=== PATIENT | female | born 1940 | race Caucasian/White ===

== ENCOUNTER 2016-10-11 07:25 | Inpatient (IN) | payer MEDICARE, BC ==
[~2016-10-11] VITALS: Ht 154.9 cm; Wt 118.3 kg
--- NOTE | ~2016-10-11 | CON ---
PATIENT'S NAME: CHARLIE WARD [facility] AGE: 76 Y [address] ROOM: [id number] [place], [place] [address] LOCATION: GPCU ADMIT DATE: 10/11/2016 Consultation DISCHARGE DATE: 10/18/2016 FAMILY PHYSICIAN: Angie Alva PA-C ATTENDING PHYSICIAN: Jared Barajas DATE OF CONSULTATION: 10/11/2016 REFERRING PHYSICIAN: Sunny Wright MD INDICATION: Preop clearance. HISTORY OF PRESENT ILLNESS: This 76-year-old female, transferred from [place] for a fall with right hip fracture. She has a history of diabetes, colon cancer status post resection 2- 3 years ago without need for chemo or radiation, heart disease, and CKD. She was in a prison and uses oxygen at night. She apparently received fentanyl and Dilaudid prior to transfer, and upon arriving to the ER, she was hypoxic, requiring 12 L non-rebreather. ABG at that time, showed a pH of 7.16, pCO2 97, pO2 71, bicarb 34.6, base excess 3.1. Chest x-ray performed in [place] showed atelectasis versus pneumonia at the bases. Her niece reports no history of chronic cough, shortness of breath, or wheezing, but overall she is not very ambulatory or active. There is no history of asthma, COPD, PE, or DVT. She does not use an inhaler. She has a history of smoking one pack per day for 20-30 years and quit 30 years ago. She is morbidly obese and currently on BiPAP 18/10 with FiO2 of 60% and sats 98%. She is very drowsy and will slightly open eyes to voice. Information was obtained from the niece, who is the POA, and the chart. PAST MEDICAL HISTORY: Includes type 2 diabetes, depression, history of gastric ulcer, peripheral neuropathy, hypertension, hypothyroidism, history of colon cancer status post resection without need for chemo or radiation. FAMILY HISTORY: The patient's father from an [place]. Her mother from heart disease and diabetes. She denies any history of cancer. SOCIAL HISTORY: The patient currently resides in a prison. She is a former smoker, one pack per day for 20-30 years and quit 30 years ago. There is no alcohol or illicit drug use. ALLERGIES: SEE MAR. PATIENT'S NAME: CHARLIE WARD [facility] AGE: 76 Y [address] ROOM: [id number] [place] [address] LOCATION: GPCU ADMIT DATE: 10/11/2016 Consultation DISCHARGE DATE: 10/18/2016 FAMILY PHYSICIAN: Angie Alva PA-C ATTENDING PHYSICIAN: Jared Barajas MEDICATIONS: See MAR. REVIEW OF SYSTEMS: A 12-point review of systems negative except as noted in HPI. PHYSICAL EXAMINATION: VITAL SIGNS: Blood pressure 160/72, pulse 90, respirations 13, temp 97.9. She is on BiPAP with FiO2 of 60%, sats 98%. GENERAL: This is a 76-year-old morbidly obese female who appears in no acute distress at the time of exam. HEENT. Head: Normocephalic and atraumatic. Eyes: Clear. NECK: Supple. No adenopathy. No carotid bruits or JVD. LUNGS: Decreased breath sounds throughout. HEART: Regular rate and rhythm without murmur, gallop, rub. ABDOMEN: Soft, nontender, obese. Bowel sounds x4. EXTREMITIES: No cyanosis, clubbing, or edema. DIAGNOSTIC DATA: Sodium 141, potassium 5.7, bicarb 31, BUN 74, creatinine 1.8, troponin 0.365, proBNP 4087. WBC 14.3, hemoglobin 7.5, hematocrit 26.7, platelets 328. ASSESSMENT: 1. Acute hypercapnic respiratory failure. Seems acute due to opiate over medication most likely. No significant metabolic alkalosis to suggest chronic component, although the patient is in acute kidney injury. 2. Right hip fracture post mechanical fall. 3. Morbid obesity (?) obesity hypoventilation syndrome. 4. Acute kidney injury. 5. Bilateral lower extremity edema, question related to cor pulmonale. 6. Severe pain secondary to #2. PLAN: We will check CT of the chest without contrast and start patient on AVAPS as patient refuses intubation except for procedure; will work toward keeping O2 sats 90-95%. Overall, she is high risk for postoperative respiratory decompensation especially if opiates are used. Suggest epidural catheter placement if possible. An echo has been ordered. We will follow up on those results. She may benefit from diuresis as well. Thank you for the consult and opportunity to participate in patient's care. PATIENT'S NAME: CHARLIE WARD [facility] AGE: 76 Y [address] ROOM: [place] [address] [facility] ADMIT DATE: 10/11/2016 Consultation DISCHARGE DATE: 10/18/2016 FAMILY PHYSICIAN: Angie Alva PA-C ATTENDING PHYSICIAN: Jared Barajas ROSENDO VINSON APRN FOR THEODORE JOSE MD [facility]/modl /[id number] d: 10/31/16 1606 t: 11/09/16 1202, CONSULTATION REPORT
--- NOTE | ~2016-10-11 | PUL ---
PATIENT'S NAME: CHARLIE WARD [facility] AGE: 76 Y [address] ROOM: [place] [address] LOCATION: GPCU ADMIT DATE: 10/11/2016 Pulmonary DISCHARGE DATE: 10/18/2016 FAMILY PHYSICIAN: Angie Alva PA-C ATTENDING PHYSICIAN: Jared Barajas NAME OF PROCEDURE: Bedside Spirometry DATE OF PROCEDURE: October 16, 2016 TECH: SERINA Loo REASON FOR EXAM: Shortness of breath RESULTS: FVC was 0.8 liters which is 33% of predicted and low, FEV1 was 0.6 liters which is 33% of predicted and low, and FEV1/FVC was 74.9% and low. The flow volume curve did not show any significant airflow limitation. However, there was a suggestion of restrictive lung disease. After bronchodilator administration FVC decreased to 0.55 liters and FEV1 decreased to 0.38 liters. FEV1/FVC was 69.2%. PHYSICIAN INTERPRETATION: The patient has no airflow limitation and no significant bronchodilator response. There is suggestion of restrictive lung disease, but lung volumes are needed to confirm that. MD TABATHA SALEEM/malorie /[id number] dtt: 10/19/16 0954 , THEODORE JOSE dtd: 10/19/16 0734
--- NOTE | ~2016-10-11 | DS ---
PATIENT'S NAME: CHARLIE WARD [facility] AGE: 76 Y [address] ROOM: [place] [address] LOCATION: GPCU ADMIT DATE: 10/11/2016 Discharge Summary DISCHARGE DATE: 10/18/2016 FAMILY PHYSICIAN: Angie Alva PA-C ATTENDING PHYSICIAN: Jared Barajas PRIMARY DIAGNOSES: 1. Right proximal femur fracture after mechanical fall, status post open reduction and internal fixation. 2. Left distal fibular fracture. 3. Tvlsj-fe-hanluax hypoxic respiratory failure. 4. Gajbb-qv-yvxbgux cor pulmonale. 5. Bcm-FN-spnnjqkwd myocardial infarction. 6. Coronary artery disease. 7. Essential hypertension. 8. Morbid obesity. 9. Anemia with chronic lower gastrointestinal bleeding. 10. Diabetes mellitus type 2. 11. Chronic gait instability. 12. Diabetic peripheral neuropathy. 13. Obstructive sleep apnea. 14. Hypothyroidism. 15. Irritable bowel syndrome. 16. Morbid obesity. 17. Moderate protein-calorie malnutrition. 18. Acute kidney injury, prerenal. OPERATIONS OR PROCEDURES: Skeletal traction was applied on 10/11/[address] Wright. Operative reduction and internal fixation of right hip fracture was performed on 10/13/[address] Wright. HISTORY OF PRESENTING ILLNESS AND REASON FOR ADMISSION: Please refer to the H and P dictated on 10/11/2016. HOSPITAL COURSE: The patient was admitted to the hospital as noted above with a presumptive diagnosis of right femur fracture after a mechanical fall, which occurred at her place of residence. She was seen and evaluated in the emergency room and in consultation with Dr. Sunny Wright, orthopedic surgeon. Operative intervention was delayed for cardiac clearance. She was seen and evaluated by Cardiology. She was noted to have cbr-NT-hrrlfcyqv [place]. No intervention was performed. She refused any sort of aggressive intervention and refused statin therapy ultimately. Eventually, operative reduction and internal fixation was performed on PATIENT'S NAME: CHARLIE WARD [facility] AGE: 76 Y [address] ROOM: [place] [address] LOCATION: GPCU ADMIT DATE: 10/11/2016 Discharge Summary DISCHARGE DATE: 10/18/2016 FAMILY PHYSICIAN: Angie Alva PA-C ATTENDING PHYSICIAN: Jared Barajas 10/13/[address] Wright. Postoperatively, her clinical condition was fair. She demonstrated slow progress and oxygen requirements were fairly high. Pulmonology was also consulted. She received aggressive attention to pulmonary hygiene and titration of her oxygen therapy. It was felt that she would remain chronically oxygen dependent and that her pulmonary status was essentially optimized. She did receive some moderately aggressive diuresis and seemed to respond to that fairly well, but oxygen requirements remained unchanged. She received physical therapy and occupational therapy for strength and rehabilitation. Blood sugars remained difficult to control. Her insulin regimen was adjusted, but by the end of her hospital stay here, she was transitioned back to her usual insulin regimen. Because of her renal dysfunction, metformin was held. By the end of her hospital stay, her acute kidney injury had resolved and had actually improved somewhat with diuresis. She did have evaluation by Gastroenterology for anemia. She did have a history of peptic ulcer disease and EGD was performed. No evidence of bleeding was found, although she did have some chronically heme-positive stools. It was suspected that she probably had some chronic lower GI bleeding. It was suggested by Gastroenterology that she should have lower endoscopy at some point as an outpatient, but that it was not emergently warranted during this hospital stay. DISCHARGE INSTRUCTIONS: DIET: ADA, 2000-calorie per day as tolerated. ACTIVITY: As tolerated. She will receive physical therapy, occupational therapy. MEDICATIONS: 1. Amitriptyline 25 mg p.o. at bedtime. 2. Aspirin 325 mg p.o. daily. 3. Baclofen 5 mg p.o. t.i.d. p.r.n. 4. Carvedilol 12.5 mg p.o. b.i.d. 5. Lovenox 40 mg subcu daily x5 more days. 6. Lasix 40 mg p.o. daily. 7. Gabapentin 100 mg p.o. at bedtime. 8. Insulin lispro 16 units subcu t.i.d. per sliding scale with meals. 9. Insulin glargine 22 units subcu daily and 70 units at bedtime. 10. Omeprazole 40 mg p.o. daily. PATIENT'S NAME: CHARLIE WARD [facility] AGE: 76 Y [address] ROOM: [place] [address] LOCATION: GPCU ADMIT DATE: 10/11/2016 Discharge Summary DISCHARGE DATE: 10/18/2016 FAMILY PHYSICIAN: Angie Alva PA-C ATTENDING PHYSICIAN: Jared Barajas 11. Acetaminophen 325 mg p.o. q.4 hours p.r.n. 12. Acetaminophen 650 mg p.o. q.6 hours p.r.n. 13. Glucagon 1 mg subcu p.r.n. hypoglycemia. 14. Glucose tablets 16 g p.o. p.r.n. hypoglycemia. 15. Tramadol 50 mg p.o. q.6 hours p.r.n. pain. 16. Lisinopril 5 mg p.o. daily. 17. [place] Thyroid 60 mg p.o. daily. 18. Coconut oil 1000 mg p.o. daily. 19. Cranberry fruit 450 mg p.o. daily. 20. Magnesium 200 mg p.o. daily. 21. Potassium gluconate 595 mg p.o. daily. 22. Metformin 850 mg p.o. b.i.d. 23. Patanol ophthalmic drops 1 drop each eye b.i.d. 24. Meclizine 25 mg p.o. t.i.d. p.r.n. dizziness. 25. Nystatin cream, apply topically t.i.d. p.r.n. 26. Mylanta 30 mL p.o. q.6 hours p.r.n. dyspepsia. 27. Voltaren gel 1%, apply topically daily p.r.n. 28. Lomotil 1 to 2 tablets p.o. q.6 hours p.r.n. diarrhea. 29. Guaifenesin 600 to 1200 mg p.o. q.12 hours p.r.n. congestion. 30. Nystatin, apply topically q.8 hours p.r.n. redness. FOLLOWUP: She will follow up with primary care provider, Angie Alva in 5 to 7 days. She will follow up with Dr. Sunny Wright in 1 month. CONDITION ON DISCHARGE: Fair. Total time spent on discharge process 60 minutes. MD KIANA DIXON/modl /[id number] d: 10/19/16 0214 t: 10/21/16 1612, DISCHARGE SUMMARY
--- NOTE | ~2016-10-11 | OR ---
PATIENT'S NAME: CHARLIE WARD [facility] AGE: 76 Y [address] ROOM: [place] [address] [facility] ADMIT DATE: 10/11/2016 OR/Procedure Report DISCHARGE DATE: FAMILY PHYSICIAN: Angie Alva PA-C ATTENDING PHYSICIAN: TYLER GIANG SURGEON: Sunny Wright MD WATER TREATMENT PLANT REPAIRER: DATE OF PROCEDURE: 10/11/2016 PREOPERATIVE DIAGNOSIS: Subtrochanteric fracture, right femur. POSTOPERATIVE DIAGNOSIS: Subtrochanteric fracture, right femur. PROCEDURE PERFORMED: Application of skeletal traction under local anesthetic. DESCRIPTION OF PROCEDURE: With local infiltration, after sterile prep on the proximal tibia, the smooth K-wire was passed through the tibia through the stab wounds. A Diego bow was applied and that was attached to a traction frame, and I put 25 pounds on the tibial traction and about 10 pounds on the thigh sling, and the alignment looked much improved. She tolerated it well. We will get a postoperative x-ray and adjust the traction accordingly. MD CORRY MARIE/vinniel /[id number] CC: Angie Alva PA-C [address] [place] [address] d: t: 10/12/16 1426, OPERATIVE SUMMARY
--- NOTE | ~2016-10-11 | ER ---
PATIENT'S NAME: CHARLIE WARD [facility] AGE: 76 Y [address] ROOM: [place] [address] LOCATION: GPCU ADMIT DATE: 10/11/2016 ER/Outpatient Report DISCHARGE DATE: FAMILY PHYSICIAN: PHYSICIAN, UNKNOWN ATTENDING PHYSICIAN: TYLER GIANG Time of Arrival: 0725 hours. Time Seen: 0725 hours. IDENTIFICATION: A 76-year-old female. CHIEF COMPLAINT: Hypoxia and hypercapnia. HISTORY OF PRESENT ILLNESS: The patient is a 76-year-old female who is being transported by [employer] from [place], [place] for a femur fracture for Dr. Wright and Dr. Jaffe. She has had increasing pCO2 of 60s on a nonrebreather at 12 L saturating 96% and not very responsive, but the flight team said she was that way when they picked her up. She had received a total of 3 mg of Dilaudid, 50 mcg of fentanyl, and they did not give her any additional pain medicine en route. The patient will arouse, answer questions, follow commands, complains of pain in her right femur. She does live in a snf. She fell around 1:30 a.m. and then was taken to the hospital in [place] where she was found to have a proximal right femur fracture. Chest x-ray showed hypoventilation and possibly some pneumonia, so she also received Zosyn. MEDICAL HISTORY: ALLERGIES: TO SULFA, ORANGE JUICE, ALBUTEROL, LEVOTHYROXINE, NITROFURANTOIN, CECLOR, CIPRO, MACRODANTIN, XOPENEX, AND STATINS. CURRENT MEDICATIONS: She received, 1. Fentanyl 50 mcg. 2. Dilaudid 3 mg. 3. Ipratropium. 4. Budesonide. 5. Nebulized Lovenox 100 mg subcu. Current medications: 1. Amitriptyline 25 mg 1 time daily. 2. [place] Thyroid 60 mg daily. 3. Coconut oil capsule 1000 mg daily. PATIENT'S NAME: CHARLIE WARD [facility] AGE: 76 Y [address] ROOM: [place] [address] LOCATION: GPCU ADMIT DATE: 10/11/2016 ER/Outpatient Report DISCHARGE DATE: FAMILY PHYSICIAN: PHYSICIAN, UNKNOWN ATTENDING PHYSICIAN: TYLER GIANG 4. Cranberry tablet 450 mg daily. 5. Gabapentin 100 mg 1 time a day. 6. Lantus 22 units subcu 1 time daily in the a.m. and 70 units at bedtime. 7. Lasix 40 mg daily. 8. Lisinopril 5 mg daily. 9. Magnesium 200 mg daily. 10. Omeprazole 20 mg 2 capsules by mouth 1 time daily. 11. Potassium 595 mg 1 capsule daily. 12. Protonix 40 mg daily. 13. Aspirin 81 mg daily. 14. Augmentin 875 b.i.d. for congestion, initiated on 10/07 until 10/16. 15. Coreg 12.5 mg b.i.d. 16. Metformin 850 mg b.i.d. 17. Patanol 0.1% one drop in each eye 2 times a day. 18. Baclofen 10 mg 0.5 tablet t.i.d. 19. Humalog insulin 16 units subcu 3 times a day. 20. Humalog sliding scale. 21. Meclizine 25 mg t.i.d. 22. Nystatin powder t.i.d. 23. Carafate 1 g 4 times daily. 24. Tylenol p.r.n. 25. Milk of magnesia p.r.n. 26. Gilbert 10/325 p.r.n. 27. Lomotil p.r.n. 28. MiraLAX p.r.n. 29. Mucinex p.r.n. 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 REVIEW OF SYSTEMS: Unable to obtain from the patient due to her altered mental status and lethargy. FAMILY HISTORY: Unable to obtain from the patient. PHYSICAL EXAMINATION: VITAL SIGNS: Weight 111.7 kg, blood pressure 158/77, pulse 90, respirations 18, temperature 97.7, saturations 96% on 12 L nonrebreather, and end-tidal PATIENT'S NAME: SYLVIACHARLIE [facility] AGE: 76 Y [address] ROOM: [id number] [place], [place] [address] [facility] ADMIT DATE: 10/11/2016 ER/Outpatient Report DISCHARGE DATE: FAMILY PHYSICIAN: PHYSICIAN, UNKNOWN ATTENDING PHYSICIAN: TYLER GIANG pCO2 were ranged from 38-70. GENERAL: A 76-year-old, morbidly obese female, in obvious distress. HEENT: Head: Normocephalic. Ears: Not visualized. Eyes: Pupils equal and reactive to light and accommodation. Extraocular movements intact. Nose: Mucosa pink. No lesions. Mouth: No lesions. Pharynx benign. NECK: Supple. No lymphadenopathy. No thyromegaly. LUNGS: Clear to auscultation with diminished breath sounds. HEART: Regular rate and rhythm. No murmur, rub, or gallop. ABDOMEN: Protuberant. Bowel sounds present. Soft, nondistended, and nontender. SKIN: Newman, warm, and dry. No lesions or rashes noted. EXTREMITIES: Left foot, she has some toes that were previously amputated, but she does have a laceration on her left 5th toe, the dorsum and then between her 4th and 5th digits. NEUROLOGIC: The patient is lethargic, but will answer questions. She is oriented to person, place, and time. Cranial nerves 2 through 12 grossly intact. Motor strength 5/5. Her cranial nerves 2 through 12 grossly intact. No sensory deficit. DIAGNOSTIC DATA: Cath UA negative. EKG: Normal sinus rhythm at 92 beats per minute. No acute ST elevation or depression. Nonspecific ST-T wave changes. Hemoglobin 7.5 which is chronic for her, hematocrit 26.7, and white blood cell count 14.3. Sodium 141, potassium 5.7, chloride 103, CO2 31, BUN 74, creatinine 1.8, and blood sugar 209. Liver enzymes normal. Magnesium 2.7. CPK 79, proBNP 4087. INR 0.99. Records reviewed from [facility] transfer records report a resident fell in room at 150, complaining of severe right hip and leg pain, moderate left leg and ankle pain, did not hit head, alert and oriented. EKG reviewed from there, which showed no acute ST elevation or depression at 0241 hours; repeat EKG at 0355 hours, sinus tachycardia with no acute ST elevation or depression. Chest x-ray report from [place], hypoventilatory lung changes with small ill-defined opacities in the lower lung zones favoring atelectasis versus pneumonia. Chest x-ray here, cardiomegaly with generalized vascular prominence, suspect chronic pulmonary hypertension, mild pulmonary edema is possible. Right femur x-ray report from [place]: Oblique fracture, proximal subtrochanteric femoral shaft, with approximately 60% medial displacement and 20% of apical medial angulation. Left 5th toe x-ray: Postsurgical changes with multiple amputations, small bony erosion involving the lateral head of the 3rd metatarsal, osteomyelitis possible. X-ray report, right knee: No acute bony abnormality. X-ray pelvis: Proximal femur fracture and degenerative joint disease. Labs reviewed from [place], [place] obtained 0249 hours; sodium 138, potassium 5.2, chloride 103, CO2 33, BUN 78, creatinine 2.0, and blood sugar 165. Albumin 2.8, troponin I 0.37, myoglobin 108. Troponin I repeated here, 0.365. Hemoglobin 7.9 in [place], hematocrit 27.5, platelets 284, and white blood cell count 13.5. UA negative. The PATIENT'S NAME: CHARLIE WARD [facility] AGE: 76 Y [address] ROOM: [place] [address] [facility] ADMIT DATE: 10/11/2016 ER/Outpatient Report DISCHARGE DATE: FAMILY PHYSICIAN: PHYSICIAN, UNKNOWN ATTENDING PHYSICIAN: TYLER GIANG patient is a DNR. IMPRESSION AND PLAN: 1. Hypoxia and hypoventilation. ABGs were obtained; pH 7.16, pCO2 97, PO2 71, bicarb 34.6, and saturations 89%. The patient was placed on BiPAP. She is a do not resuscitate/do not intubate. Dr. Jaffe and Dr. Giang both evaluated the patient in the emergency room. 2. Right femur fracture. Dr. Wright will assume care for that. 3. Elevated cardiac enzymes. Serial EKG and enzymes, no acute ST elevation noted. 4. Hyperkalemia. Potassium 5.7. 5. Acute kidney injury. 6. Chronic history of anemia. We will follow. 7. Congestive heart failure with congestion on x-ray and proBNP of 4087. 8. Possible pneumonia, on x-ray. Zosyn was initiated in [place], [place]. 9. Possible osteomyelitis, lateral head of the 3rd metatarsal. Orthopedic consultation with Dr. Wright. 10. Laceration between the webspace and dorsum of left 5th toe and between the 4th and 5th toe. The area was anesthetized and draped in sterile fashion by resident, Dr. Kira Siddiqui. Under my observation, she did place simple interrupted sutures with no complications. Suture removal in 7 days. 50 minutes of critical care was provided with this patient. CELENA NIXON MD CAR/modl /[id number] d: 10/11/162 t: 10/12/16 0800, OUTPATIENT REPORT
--- NOTE | ~2016-10-11 | HP ---
PATIENT'S NAME: CHARLIE WARD [facility] AGE: 76 Y [address] ROOM: [id number] [place], [place] [address] LOCATION: GPCU ADMIT DATE: 10/11/2016 History & Physical DISCHARGE DATE: FAMILY PHYSICIAN: PHYSICIAN, UNKNOWN ATTENDING PHYSICIAN: TYLER GIANG DATE OF SERVICE: CHIEF COMPLAINT: Right hip pain status post mechanical fall. HISTORY OF PRESENT ILLNESS: This is a 76-year-old senior care female resident who currently is a poor historian due to lethargy. The story is obtained from the senior care where I personally spoke to the nurse taking care of the patient as well as getting the sign-out from the ER and also from the medical records. I also spoke to the patient's niece to get the history. The story is that the patient has a history gastric ulcer, and for the last few days, she was tested positive for Hemoccult blood test x3 and was also having some lower GI bleeding, not clear if it was melena or hematochezia. The patient received 2 units of packed red blood cell transfusion yesterday for anemia. She also has a history of colon cancer, but details not clear. The story is that earlier this morning, she was walking back from the bathroom, and she tripped, and she fell, landing on her left side. No loss of consciousness, and no head trauma. Because of the pain, the patient could not get up, and the patient was brought by the staff to the outside facility in [facility] Emergency Room for evaluation. Over there, the patient had several imaging tests performed with x-rays of the left foot show postsurgical changes with multiple amputations. Also had an x- ray of the right knee which was negative. Also had an x-ray of the pelvis which showed proximal femoral fracture. Also had a chest x-ray that showed hypoventilatory lung changes with small, ill-defined opacities in the lower lung favoring atelectasis versus pneumonia. Blood work was remarkable for hyperkalemia, potassium 5.2; carbon dioxide 33; creatinine 2.0; and GFR of 26. Troponin 0.37. Myoglobin 108. White blood cells 13.5, hemoglobin 7.9, and hematocrit 27.5. EKG at outside facility showed normal sinus rhythm, heart rate of 94 beats per minute, QRS 90, OH 142, and QTc 442. Do not appreciate any hyperkalemic changes. The patient got 3 mg of IV Dilaudid. Also got fentanyl 50 mcg one time; Zosyn one dose; Lovenox 100 mg intramuscular one time, not sure why; lactated Ringer 1 L; Solu-Medrol 125 mg IV x1; and nebulization with ipratropium x1. Upon arrival here, the patient is lethargic and drowsy. ETCO2 was in the 60s and can barely answer any question. Oxygen saturation was requiring of open face mask up to 15 L to keep the saturation at the low 90s to high 80s, but dropped down to the mid 85. Therefore, BiPAP was placed at a setting of 18/10 PATIENT'S NAME: CHARLIE WARD [facility] AGE: 76 Y [address] ROOM: [place] [address] LOCATION: GPCU ADMIT DATE: 10/11/2016 History & Physical DISCHARGE DATE: FAMILY PHYSICIAN: PHYSICIAN, UNKNOWN ATTENDING PHYSICIAN: TYLER GIANG and 50% FiO2, saturating at 92% currently. The patient is a very poor historian and very drowsy, cannot give much history. The patient does deny any chest pain, but she says that she is having a lot of shortness of breath. Otherwise, cannot obtain any other history. REVIEW OF SYSTEMS: As mentioned in History of Present Illness. All other systems reviewed and negative except those mentioned in the History of Present Illness. PAST MEDICAL HISTORY: From the senior care medical chart. 1. Diabetes, type 2. 2. Depression. 3. History of gastric ulcer. 4. Peripheral neuropathy. 5. Hypertension. 6. Hypothyroidism. 7. History of colon cancer, details not clear. 8. Probable COPD. 9. Probable obstructive sleep apnea. ALLERGIES: PER MEDICAL RECORDS. 1. ALBUTEROL. 2. LEVOTHYROXINE. 3. LINE NITROFURANTOIN. 4. CECLOR. 5. CIPROFLOXACIN. 6. MACRODANTIN. 7. XOPENEX. 8. STATINS. 9. SULFA. 10. ORANGE JUICE. HOME MEDICATIONS: Currently, are being reconciled. SOCIAL HISTORY: The patient cannot answer questions due to drowsiness. From the patient's niece and from the senior care, the patient was a former cigarette smoker, about one pack per day for many, many years. She quit about 30 years ago. No history of alcohol or illegal drug use. PAST SURGICAL HISTORY: According to the patient's niece and the senior care, she is status post left PATIENT'S NAME: CHARLIE WARD [facility] AGE: 76 Y [address] ROOM: [facility] [place] [address] LOCATION: GPCU ADMIT DATE: 10/11/2016 History & Physical DISCHARGE DATE: FAMILY PHYSICIAN: PHYSICIAN, UNKNOWN ATTENDING PHYSICIAN: TYLER GIANG foot surgery with amputation of the toes, likely from diabetic foot ulcer in the past. FAMILY HISTORY: Father from myocardial infarction at age 80. Mother from cardiac complication from coronary artery disease and diabetes, details not clear. PHYSICAL EXAMINATION: VITAL SIGNS: At the time of my dictation, temperature 98; heart rate 85; saturation 92% on BiPAP, settings are rate 14, FiO2 of 60%, pressure of 18/10; blood pressure 130/80; and respirations 14. GENERAL APPEARANCE: Drowsy, lethargic, and can barely answer questions. Alert on sternal rub, but not really to voice. Not in acute distress. HEENT: Pupils equally round and reactive to light. Extraocular muscles intact. Anicteric sclerae. Nasal turbinates are normal bilaterally. Moist oral mucosa. NECK: Difficult to assess JVD due to body habitus. CARDIOVASCULAR. Regular rate and rhythm. Normal S1 and S2. No murmur. No rubs. No gallops. RESPIRATORY: Difficult to assess the lung sounds due to her body habitus. Due to the right hip fracture, the patient cannot really move too much. Based from the side of the lungs and from the anterior chest, some bibasilar crackles. ABDOMEN: Obese, soft, nontender, and nondistended. Bowel sounds are present. Cannot appreciate any palpable mass. EXTREMITIES: She does have bilateral pitting edema in bilateral lower extremities. 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 There is a small open wound area in the left foot, currently is being closed by suture in the ER. Dorsalis pedis pulse and posterior tibialis pulse palpable in both feet. SKIN: No rash. No cyanosis. MUSCULOSKELETAL: Right lower extremity not examined. Cannot assess full muscle strength on either extremity due to lethargy. NEUROLOGICAL: Cannot assess a full neurologic exam due to the patient's lethargy. LABORATORY DATA: ABG on BiPAP setting of 17/04 showed pH of 7.16, pCO2 of 97, PO2 of 71, bicarbonate 34.6, and saturation 89%. Lactic acid 1.0. Troponin 0.365. ProBNP 4087. CPK 79. White blood cells 14.3, hemoglobin 7.5, hematocrit 26.7, MCV 85.3, and platelets 228. Glucose 209, BUN 74, creatinine 1.8, sodium 141, potassium 5.7, chloride 103, CO2 of 31, and calcium 8.5. Total protein 7.0. Albumin 2.9. AST 14, ALT 16, and alkaline phosphatase 78. Total bilirubin 0.3. Magnesium 2.7. Anion gap 12.7. GFR 27. Hemoglobin A1c 6.5. INR 0.99 and PTT 21. Urinalysis negative for UTI. CK-MB 1.8. PATIENT'S NAME: CHARLIE WARD [facility] AGE: 76 Y [address] ROOM: [address] [address] [facility] ADMIT DATE: 10/11/2016 History & Physical DISCHARGE DATE: FAMILY PHYSICIAN: PHYSICIAN, UNKNOWN ATTENDING PHYSICIAN: TYLER GIANG Procalcitonin 0.09. D-dimer pending. IMAGING STUDIES: Chest x-ray on admission here showed cardiomegaly with generalized vascular prominence. Suspect chronic pulmonary hypertension. Mild pulmonary edema is possible. EKG here on admission, the first one, at 8:[address]-depression in anteroseptal lateral leads and also mild ST-depression in the inferior leads as well. Heart rate sinus rhythm, heart rate 92, OH 154, QRS 110, and QTc 411. Repeat EKG at 9:05 a.m. shows sinus rhythm, heart rate 87, OH 164, QRS 100, QTc 408, and ST depression already resolved. No acute ST-elevation or depression. X-ray of the pelvis and the lower extremity already mentioned in the History of Present Illness. ASSESSMENT AND PLAN: 1. Regarding her right hip fracture: Defer to Orthopedic Surgery for surgical procedure. 2. Regarding her preoperative medical clearance: She is not medically clear. Currently, she has several issues that need to be addressed and be optimized before the surgery. The first problem is her lethargy, confusion, and her acute on chronic respiratory failure. Probably, the patient also has obstructive sleep apnea and also chronic obstructive pulmonary disease that was never diagnosed. Not sure what is her baseline, but from the ABG, it did show pCO2 of 97 and bicarbonate of 31 which showed that she likely is a CO2 retainer, likely from obstructive sleep apnea or chronic obstructive pulmonary disease causing her to have respiratory acidosis with secondary metabolic alkalosis. X-ray does not show any infiltrate to suggest pneumonia. Her lungs have some crackles in both bases, but I do not really appreciate any wheezing; however, the lung examination is limited due to her body habitus and could not move her too much due to the right hip pain. She is on BiPAP right now. I will check ABG again in 4 hours. I will order a pulmonology consult. I will give her some nebulization. She required steroids before coming here. The other thing is that she got the Dilaudid 3 mg and also fentanyl 50 mcg prior to coming here. This may also cause respiratory depression and caused ETCO2 at 60 upon arrival here. For that reason, I am going to give her one dose of IV Narcan 0.4 mg. I will get a pulmonology consult. At home, she uses 4 L of nasal cannula 24/ likely for chronic obstructive pulmonary disease or obstructive sleep apnea. The other issue is her troponin elevation, and I will be getting a transthoracic echocardiogram and get a cardiology consult. She does have PATIENT'S NAME: CHARLIE WARD [facility] AGE: 76 Y [address] ROOM: [place] [address] [facility] ADMIT DATE: 10/11/2016 History & Physical DISCHARGE DATE: FAMILY PHYSICIAN: PHYSICIAN, UNKNOWN ATTENDING PHYSICIAN: TYLER GIANG chronic kidney disease, according to the senior care, but I am not sure what is her baseline. I am going to get medical records from the PCPs office and also from the patient's primary casting associate. detention does not have much idea about why the patient has a casting associate or much of her past medical history regarding her heart. Check cardiac enzymes. On examination, the patient does not look grossly volume overloaded. EKG is not ischemic. The patient denies chest pain. The other issue is gastrointestinal bleeding. She has a history of gastric ulcer and also colon cancer, details not clear. She received 2 units of packed red blood cell transfusion yesterday at the senior care because she was having some lower gastrointestinal bleeding, not sure if it was melena or hematochezia. On admission here, hemoglobin was 7.5. She had a Hemoccult blood test positive 3 times in the last few days in the senior care. I am going to give her 1 unit of blood right now of packed red blood cell transfusion and give her IV Protonix bolus followed by drip. I already spoke to the on-call hospital superintendent, Dr. Maravilla. I will put a gastroenterology consult, and up to GI to assess if gastrointestinal bleeding is an urgent issue at the moment, can control with blood transfusion and the Protonix or get urgent EGD. Certainly, we do not want to delay the surgery for the fracture. As long as the patient is hemodynamically stable, gastrointestinal bleeding perhaps can be addressed at a later time. I will keep Gastroenterology in the loop since the beginning. 3. Regarding her chronic kidney disease, not sure what is her baseline, with hyperkalemia: Not sure if it is acute kidney injury on chronic kidney disease, or chronic kidney disease at baseline, but she does have hyperkalemia here. Before repeating the EKG, I already ordered one dose of calcium gluconate 1 g. For now, I am going to give her Kayexalate 15 g p.o. x1, and I already spoke to the hospital superintendent about the use of Kayexalate in the setting of gastrointestinal bleeding. I will also give her IV dextrose 10 units regular insulin IV in combination with 50 mL of 50% dextrose followed by dextrose 10% running at 75 mL/hour. Check a fingerstick every hour for the next 4 hours to prevent hypoglycemia. Also, give her IV fluids with normal saline. I am going to give hydration to improve kidney function, and that could also help with the potassium. The patient is getting nebulization right now with albuterol and DuoNeb. I will repeat a renal panel again in the afternoon. We will also be checking some urine electrolytes. She has a Gomez in place already. Monitor urine output. 4. Regarding her diabetes type 2: Use subcu regular insulin q.6 hours while n.p.o. 5. I will be getting a CT of the head without contrast in the setting of lethargy. 6. Deep venous thrombosis prophylaxis: In the setting of active gastrointestinal bleeding, I will avoid any pharmacological prevention. Foot pump could be used. PATIENT'S NAME: CHARLIE WARD [facility] AGE: 76 Y [address] ROOM: [place] [address] [facility] ADMIT DATE: 10/11/2016 History & Physical DISCHARGE DATE: FAMILY PHYSICIAN: PHYSICIAN, UNKNOWN ATTENDING PHYSICIAN: TYLER GIANG 7. Code status: Do not resuscitate/do not intubate. Time spent on the day of admission is 50 minutes including chart review, interviewing and examining the patient, and addressing all the questions and concerns the patient and the patient's niece had. I also called the senior care and also to the niece to get more history. I also went over the plan of care with the nurse. TYLER GIANG MD CC/modl /[id number] D: 700 T: 335 HISTORY & PHYSICAL
--- NOTE | ~2016-10-11 | CON ---
PATIENT'S NAME: CHARLIE WARD [facility] AGE: 76 Y [address] ROOM: [id number] [place], [place] [address] LOCATION: GPCU ADMIT DATE: 10/11/2016 Consultation DISCHARGE DATE: FAMILY PHYSICIAN: PHYSICIAN, UNKNOWN ATTENDING PHYSICIAN: TYLER GIANG DATE OF CONSULTATION: 10/11/2016 REFERRING PHYSICIAN: Sunny Wright MD PATIENT OF: Dr. Giang. Dear Dr. Giang: Thank you for asking me to see Mrs. Ward who is a 76-year-old female patient who has been a alf resident since May of 2016 in [place]. She apparently went into alf because she had a couple of falls. She was doing reasonably well up until last week and then she started to lose blood for the past 7 days. She received 2 units of blood transfusion at [place]. This morning around 0230 hours, she fell and fractured her hip. She was given some sedation and pain medications and she was transferred over. She was a pickwickian to start with possibly retaining carbon dioxide. She apparently has stents in her legs and has seen Dr. Acuña in [facility]. Unfortunately, [facility] did not have any bed, so she ended up being here. The patient herself does not want to give any information and she does not want me to talk to her primary doctor who is Dr. Angie Vargas in [place], [place]. Her niece who is with her is the one who gave most of the history. The patient appears to be alert and oriented when I was talking to her, and she does not want to give any history and does not want me to talk to Angie Vargas. I confirmed that after talking to her few times. According to the patient's niece, the patient has not had any trouble with chest pain. She is rather weak and is short of breath and has been on oxygen all the time and she does not know how much. She apparently sleeps with oxygen. She generally sleeps in a lift chair. She has not had any exercise. She was walking with a walker up until 2 weeks ago. However, lately she has been mostly in a wheelchair for the past couple of weeks. There is no paroxysmal nocturnal dyspnea. Apparently, she has some ankle swelling. She denies lightheadedness. Occasionally, she has been dizzy and has had no syncopal spells or palpitations according to the niece. The patient has history of hypertension, elevated cholesterol, and she quit smoking few years ago. There appears to be a significant family history of premature coronary artery disease in a brother in his 50s, having had PCI. PATIENT'S NAME: CHARLIE WARD [facility] AGE: 76 Y [address] ROOM: [place] [address] [facility] ADMIT DATE: 10/11/2016 Consultation DISCHARGE DATE: FAMILY PHYSICIAN: PHYSICIAN, UNKNOWN ATTENDING PHYSICIAN: TYLER GIANG Her lipids are unknown. There is no prior history of CT. There is no history of rheumatic fever or heart murmur or congestive heart failure or AFib. In fact, this history is rather very sketchy and I just could not get enough information from the patient herself. Her current list of medications includes: 1. Amitriptyline hydrochloride 25 mg once at bedtime. 2. Thyroid 60 mg once a day. 3. Coconut oil. 4. Cranberry fruit. 5. Gabapentin 100 mg at bedtime. 6. Insulin. 7. Lasix 40 mg once a day. 8. Lisinopril 5 mg a day. 9. Magnesium 200 mg a day. 10. Omeprazole 40 mg a day. 11. Potassium gluconate 595 once a day. 12. Protonix 40 mg b.i.d. 13. Aspirin 81 mg a day. 14. Amoxicillin 1 tablet b.i.d. 15. Carvedilol 12.5 b.i.d. 16. Metformin 850 b.i.d. 17. Patanol drops. 18. Baclofen 10 mg half t.i.d. 19. Insulin. 20. Meclizine 25 t.i.d. 21. Nystatin. 22. Carafate 1 g q.i.d. 23. Acetaminophen 325 q.4 hours p.r.n. 24. Diclofenac topical application. 25. Antacid. 26. Hydrocodone/acetaminophen. 27. Ibuprofen. 28. Lomotil. 29. MiraLAX. 30. Mucinex. ALLERGIES: NO KNOWN DRUG ALLERGIES. PAST MEDICAL HISTORY: History of stenting in the legs. Past medical history is not available as the patient would not give me any history. PATIENT'S NAME: CHARLIE WARD [facility] AGE: 76 Y [address] ROOM: [place] [address] LOCATION: GPCU ADMIT DATE: 10/11/2016 Consultation DISCHARGE DATE: FAMILY PHYSICIAN: PHYSICIAN, UNKNOWN ATTENDING PHYSICIAN: TYLER GIANG SOCIAL HISTORY: Not available as the patient would not give any history and she does not want the niece to give me history. FAMILY HISTORY: It appears as if her brother had significant problem with premature coronary artery disease. REVIEW OF SYSTEMS: This is a partial review of systems. 12-point review of systems reveals has presence of, 1. Cataracts. 2. Hypothyroidism. 3. GERD. 4. History of stomach ulcers. 5. History of asthma. 6. History of kidney infections and weak kidneys. PHYSICAL EXAMINATION: VITAL SIGNS: On examination, she is on BiPAP because of type 2 respiratory failure, but appears to be awake and alert. Blood pressure is 150s/70s, heart rate is in the 70s and regular, respirations are 20, and oxygen saturation is 92% on BiPAP. Her examination is not complete. ASSESSMENT: A 76-year-old female patient, uncooperative as far as giving even history at this point, wanting to go to [facility]. She did allow her niece to talk to me, at least part of the time. It appears as if she has had a right hip fracture and her risk for preoperative cardiovascular morbidity and mortality is unknowable at this time, but probably is very high. She has not had any physical exertion and she is currently in type 2 respiratory failure which puts her at high risk of having cardiovascular complications. In the meantime, I have requested the medical records from [facility] to see if we can come to some sort of understanding of what her cardiac condition is at this point. Again, I appreciate this opportunity to participate in the care of Mrs. Ward. PATIENT'S NAME: CHARLIE WARD [facility] AGE: 76 Y [address] ROOM: [place] [address] LOCATION: GPCU ADMIT DATE: 10/11/2016 Consultation DISCHARGE DATE: FAMILY PHYSICIAN: PHYSICIAN, UNKNOWN ATTENDING PHYSICIAN: TYLER GIANG MD RENATA MERA/vinniel /[id number] d: 10/11/160 t: 10/17/16 1058, CONSULTATION REPORT
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
--- NOTE | ~2016-10-11 | CON ---
PATIENT'S NAME: CHARLIE WARD [facility] AGE: 76 Y [address] ROOM: [place] [address] LOCATION: GPCU ADMIT DATE: 10/11/2016 Consultation DISCHARGE DATE: FAMILY PHYSICIAN: Angie Alva PA-C ATTENDING PHYSICIAN: JARED GIANG DATE OF CONSULTATION: 10/12/2016 REFERRING PHYSICIAN: Sunny Wright MD GASTROENTEROLOGY CONSULTATION REFERRING PROVIDER: Jared Giang MD REASON FOR CONSULTATION: Anemia, suspected GI bleed. HISTORY OF PRESENT ILLNESS: This is a 76-year-old female, who currently resides at a senior living. She over the past week has noticed blood in her stool that she describes as "dark and bright red." Her Hematest were also positive. She received 2 units of packed red blood cells on 10/10/2016. She subsequently was at the senior living and fell resulting with a proximal femur fracture. She was transferred to [facility] for definitive care. The patient was seen and examined. She does state that her bowels have been "dark and bright red blood." She does have a history of colon cancer with surgical intervention in approximately 2013. This was also at last completion of her EGD and colonoscopy. The patient received 2 units of packed red blood cells on 10/10/2016. On admission, her hemoglobin was 7.5. As she currently is receiving 3 units of packed red blood cells as recheck of her hemoglobin is pending at this time. She complains of mid-epigastric and generalized abdominal discomfort, though at the time of my examination, denied any current symptoms. She recently has been evaluated with Cardiology as Cardiology workup is still pending at this time. The patient also last evening, secondary to her femur fracture was placed in traction prior to surgical intervention after completion of stability and workup for this patient. The patient currently denies any chest pain, chest pressure, shortness of breath, fever, chills, night sweats, or weight loss. PAST MEDICAL HISTORY: 1. Chronic obstructive pulmonary disease. 2. History of renal failure. 3. Morbid obesity. 4. Diabetes. PATIENT'S NAME: CHARLIE WARD [facility] AGE: 76 Y [address] ROOM: [place] [address] LOCATION: GPCU ADMIT DATE: 10/11/2016 Consultation DISCHARGE DATE: FAMILY PHYSICIAN: Angie Alva PA-C ATTENDING PHYSICIAN: JARED GIANG 5. Chronic anemia. 6. History of colon cancer status post resection. PAST SURGICAL HISTORY: 1. Some type of colon resection as we will request for these records to be sent to us. 2. Upper endoscopy and colonoscopy approximately 3 years ago. 3. 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 4. Right elbow surgeries. 5. Stents in her leg. PAST SOCIAL HISTORY: The patient currently resides at a senior living. She is a former cigarette smoker, smoking approximately a pack per day for a number of years, though quit approximately 30 years ago. She denies any history of alcohol or illicit drug use. FAMILY HISTORY: The patient's father from myocardial infarction. The patient's mother from cardiac complications from coronary artery disease, and diabetes. She denies any gastrointestinal diseases or cancers. ALLERGIES: SULFA, STATINS, ALBUTEROL, LEVOTHYROXINE, CECLOR, NITROFURANTOIN, CIPROFLOXACIN, AND XOPENEX. CURRENT MEDICATIONS: Please refer to the medication administration record. REVIEW OF SYSTEMS: A 10-point review of systems was completed. All were negative except for those identified in the History of Present Illness. PHYSICAL EXAMINATION: GENERAL: A very pleasant 76-year-old female, who appears to be in no acute distress. VITAL SIGNS: Temperature 97.5, pulse of 91, respirations of 16, and blood pressure of 166/72. SKIN: [place], warm, and dry. No jaundice. HEENT: Head is normocephalic and atraumatic. Pupils are equal, round, and reactive to light. Sclerae are clear. Nonicteric. Oral mucosa is pink and moist. No thyromegaly. NECK: Soft and supple. CARDIOVASCULAR: Regular. Normal S1 and S2. RESPIRATORY: Respirations are even and unlabored. PATIENT'S NAME: CHARLIE WARD [facility] AGE: 76 Y [address] ROOM: [id number] [place], [place] [address] LOCATION: GPCU ADMIT DATE: 10/11/2016 Consultation DISCHARGE DATE: FAMILY PHYSICIAN: Angie Alva PA-C ATTENDING PHYSICIAN: JARED GIANG LUNGS: Clear to auscultation. ABDOMEN: Round, obese, nontender, and nondistended. Bowel sounds positive x4 quadrants. MUSCULOSKELETAL: No muscle weakness. The patient's right leg is in a stable traction per Orthopedics. NEUROLOGIC: Grossly nonfocal. LABORATORY DATA AND IMAGING STUDIES: Labs and Diagnostics: On admission, her CPK is 106, and troponin is 0.0257, currently trending downward. BNP on admission was 6464. White blood cell count of 14.3, hemoglobin of 7.5, hematocrit of 26.7, and platelets of 228,000. Chemistry panel includes a glucose of 248, BUN of 75, creatinine of 1.6, sodium of 141, potassium of 5.5, chloride of 105, and CO2 of 31. Liver enzymes on admission were all within normal limits. Prothrombin time of 10.4, INR is 0.99, and PTT of 21. ASSESSMENT AND PLAN: Again this is a very pleasant 76-year-old female, who was recently admitted with anemia, suspected gastrointestinal bleed, and proximal femur fracture, currently now under traction. The patient ultimately had a fall at the senior living where she currently resides resulting in transfer to [facility]. She does admit to having blood in her stool that is most likely melena as well as bright red blood over the past week. She has received 2 units of packed red blood cells on 10/10/2016 with a recheck hemoglobin on admission of 7.5. She currently is receiving a total of 3 units of packed red blood cells at this time. We will request her previous records to be sent to us from [facility] regarding her colonoscopy and her colorectal surgery completed approximately 3 years ago for colon cancer. This patient's situation is slightly complicated secondary to cardiac workup is still in the process as well as the patient currently is in traction for her femur fracture. In collaboration with our Hospitalist, Cardiology, and Orthopedic's recommendations, we will go forth with necessary testing for evaluation of gastrointestinal bleed. At this time, continue monitoring of the patient's hemoglobin as well as bowel output. A possible EGD may be warranted after further discussion with the team. Thank you for this consult and allowing us to participate in the care of this patient. We will continue to monitor, evaluate, and treat as appropriate. ALEXIS SINCLAIR APRN FOR MD DONN BANUELOS/modl PATIENT'S NAME: CHARLIE WARD [facility] AGE: 76 Y [address] ROOM: [place] [address] [facility] ADMIT DATE: 10/11/2016 Consultation DISCHARGE DATE: FAMILY PHYSICIAN: Angie Alva PA-C ATTENDING PHYSICIAN: JARED GIANG /[id number] d: 10/12/16 1834 t: 10/22/16 1522, CONSULTATION REPORT
--- NOTE | ~2016-10-11 | CON ---
PATIENT'S NAME: CHARLIE WARD [facility] AGE: 76 Y [address] ROOM: [place] [address] LOCATION: GPCU ADMIT DATE: 10/11/2016 Consultation DISCHARGE DATE: FAMILY PHYSICIAN: PHYSICIAN, UNKNOWN ATTENDING PHYSICIAN: TYLER GIANG DATE OF CONSULTATION: 10/11/2016 REFERRING PHYSICIAN: Sunny Wright MD CHIEF COMPLAINT: Fracture of right femur. HISTORY: This 76-year-old residential resident, slipped, when her legs gave way, and feLL. She has a subtrochanteric fracture of right femur. She was sent up from at [facility]. PAST HISTORY: Includes chronic obstructive pulmonary disease, renal failure, morbid obesity, and diabetes. She has been admitted by the hospitalist service here and she is being worked up. She also has chronic anemia and did have just some blood transfusions as recently in the last few days in [place]. PHYSICAL EXAMINATION: Reveals a morbidly obese female who is reasonably good historian. She denies having metal hardware elsewhere. She has had multiple procedures on her right elbow. Examination of her right lower extremity shows a short externally rotated leg. She does have a pulse in her foot. Movement is painful. RADIOGRAPH: Shows a spiral subtrochanteric fracture. IMPRESSION: Subtrochanteric fracture of right femur. RECOMMENDATION: I advised the trochanteric fixation with nail locked distally, which hopefully will stabilize her sufficiently so she cannot be moved without serious pain. She does have serious medical issues which are being evaluated. I will visit with her other caregivers and hopefully will pin her hip later today or tomorrow. PATIENT'S NAME: CHARLIE WARD [facility] AGE: 76 Y [address] ROOM: [place] [address] LOCATION: GPCU ADMIT DATE: 10/11/2016 Consultation DISCHARGE DATE: FAMILY PHYSICIAN: PHYSICIAN, UNKNOWN ATTENDING PHYSICIAN: TYLER GIANG MD MHM/faviola /[id number] d: t: 10/12/16 0826, CONSULTATION REPORT
--- NOTE | ~2016-10-11 | ECHO ---
Transthoracic Echocardiography Report (TTE) Demographics Patient Name CHARLIE WARD Date of Study 10/11/2016 Patient Number [id number] Visit Number [id number] Date of 1940 Room Number [address] Accession Number [id number] Gender Female Age 76 year(s) Referring Jenn Flores MD Shift Supervisor Rn Carleen Staley [facility] Physician Physician Interpreting Johanna Perez Ict Customer Support Officer Physician Supervising Ordering Physician MD/KAILYN Nurse Stress Nurse Instructor Conclusions Summary Technically difficult exam. The estimated left ventricular ejection fraction is 55% with normal internal dimension and WM. Mild concentric left ventricular hypertrophy. Mildly dilated RA.Increased RA pressures. Mildly dilated right ventricle. Mild MAC. Trivial MR. Procedure Type of Study TTE procedure:2D Echocardiogram, Contrast study. Procedure Date Date: 10/11/2016 Start: 12:23 PM Indications:Elevated Troponin. Additional Indications:Chest pain Appropriate Use Criteria: 9 Patient Status: STAT Contrast Medium: Definity. Amount - 1.5 ml HR: 114 bpm BP: 160/72 mmHg M-Mode/2D Measurements LV Diastolic Dimension: 4.89 cm LV Systolic Dimension: 3.54 cm LV Septum Diastolic: 1.13 cm LV PW Diastolic: 1.14 cm AO Root Dimension: 2 cm Cardiac Output: 7.73 l/min AV Cusp Separation: 1.3 cm RV Diastolic Dimension: 3.69 cm LA volume: 48 ml LVOT: 2 cm RV Base: 3.46 cm LVOT VTI: 21.6 cm RV Mid: 3.24 cm LV Stroke volume: 67.82 ml TAPSE: 1.3 cm TDI-S': 12.4 cm/s Doppler Measurements AV Peak Velocity: 1.93 m/s MV Peak E-Wave: 1.05 m/s AV Peak Gradient: 14.9 mmHg MV Peak A-Wave: 1.39 m/s AV Mean Gradient: 9 mmHg MV E/A Ratio: 0.76 LVOT Peak Velocity: 1.38 m/s MV P1/2t: 42 msec PV Peak Velocity: 1.43 m/s E' Septal Velocity: 0.04 m/s PV Peak Gradient: 8.18 mmHg E' Lateral Velocity: 0.11 m/s A' Septal Velocity: 0.12 m/s A' Lateral Velocity: 0.2 m/s Findings Left Ventricle Mild concentric left ventricular hypertrophy with normal INTERNAL DIMENSION, EF and WM. Right Ventricle Mildly dilated right ventricle with normal function. Left Atrium Normal left atrial size. Right Atrium The right atrium is mildly dilated.IVC measures 2.30 with normal hepatic flow. Mitral Valve Trivial mitral regurgitation by color Doppler. Mild mitral annular calcification. Aortic Valve Normal aortic valve structure and function. Tricuspid Valve No tricuspid regurgitation by color Doppler. Pulmonic Valve Normal pulmonic valve structure and function. Pericardial Effusion No evidence of pericardial effusion. Pleural Effusion No evidence of pleural effusion. Signature dtt: Ana Spencer dtd: 10/11/16 1223 Physician Self Edit
[2016-10-11 08:24] LABS: BICARBONATE 34.6 mmol/L (18.0-23.0); PO2 71 mmHg (80-90)
[2016-10-11 08:35] LABS: PCO2 97 mmHg (35-45)
[2016-10-11 08:42] LABS: HEMATOCRIT 26.7 % (33.0-46.0); MCHC 28.1 gm/dL (32.0-36.5); MCV 85.3 fl (83.0-98.0); MPV 10.9 fl (9.4-12.4); PLATELET COUNT 228 K/uL (150-450); RBC 3.13 M/uL (3.50-5.50); RDW-CV 17.7 % (11.9-14.6); WBC 14.3 K/uL (4.0-11.0)
[2016-10-11 08:43] LABS: HEMOGLOBIN 7.5 g/dL (10.0-15.0)
[2016-10-11 09:07] LABS: BILIRUBIN URINE NEGATIVE (NEGATIVE); BLOOD URINE 25 /UL (NEGATIVE); COLOR URINE YELLOW (YELLOW); GLUCOSE URINE NEGATIVE (NEGATIVE); KETONE URINE NEGATIVE (NEGATIVE); LEUKOCYTES URINE NEGATIVE /UL (NEGATIVE); NITRITE URINE NEGATIVE (NEGATIVE); PROTEIN URINE 30 mg/dL (NEGATIVE); SPEC GRAVITY URINE 1.015 (1.003-1.035); TURBIDITY URINE CLEAR (CLEAR); UROBILINOGEN URINE NORMAL (NORMAL)
[2016-10-11 09:10] LABS: ABSOLUTE NEUTROPHIL CT (ANC) 13.6 K/uL (1.8-7.8); BANDED NEUTROPHILS % 7 %; LYMPHOCYTE # 0.7 K/uL (0.8-4.0); LYMPHOCYTE % 5 %; SEGMENTED NEUTROPHIL # 12.6 K/uL (1.8-7.8); SEGMENTED NEUTROPHIL % 88 %
[2016-10-11 09:14] LABS: AMORPHOUS URINE 1+ (NEGATIVE); BACTERIA URINE FEW (NEGATIVE); EPITHELIAL URINE 0-2 #/HPF (NEGATIVE); MUCUS URINE 1+ (NEGATIVE); WBC URINE 0-2 #/HPF (NEGATIVE)
[2016-10-11 09:22] LABS: ALBUMIN 2.9 gm/dL (3.5-5.0); CALCIUM 8.5 mg/dL (8.5-10.5); CREATININE 1.8 mg/dL (0.5-1.1); TOTAL BILIRUBIN 0.3 mg/dL (0.0-1.5)
[2016-10-11 09:23] LABS: ANION GAP 12.7 (10.0-19.0); INR - (THERAPEUTIC) 0.99 (0.92-1.07); MAGNESIUM 2.7 mg/dL (1.8-2.6); POTASSIUM 5.7 mMol/L (3.7-5.1); PROTIME 10.4 SECONDS (9.8-11.4)
[2016-10-11] MEDS ORDERED: ARMOUR THYROID60 MG PO (12:08)
[2016-10-11] MEDS ORDERED: ELAVIL25 MG PO (12:08)
[2016-10-11] MEDS ORDERED: CRANBERRY450 M2 PO (12:09)
[2016-10-11] MEDS ORDERED: COCONUT OIL1000 MG PO (12:09)
[2016-10-11] MEDS ORDERED: LANTUS (IN100 UNIT/M SUB-Q ×2 (12:10→12:11)
[2016-10-11] MEDS ORDERED: NEURONTIN100 MG PO (12:10)
[2016-10-11] MEDS ORDERED: PRINIVIL (ZESTRI5 MG PO (12:11)
[2016-10-11] MEDS ORDERED: LASIX40 MG PO (12:11)
[2016-10-11] MEDS ORDERED: PRILOSEC20 MG PO (12:12)
[2016-10-11] MEDS ORDERED: MAGNESIUM200 MG PO (12:12)
[2016-10-11] MEDS ORDERED: POTASSIUM GLUCONATE PO (12:13)
[2016-10-11] MEDS ORDERED: ASPIRIN LO-DOSE81 MG PO (12:17)
[2016-10-11] MEDS ORDERED: PROTONIX40 MG PO (12:17)
[2016-10-11] MEDS ORDERED: AMOX TR-K CLV1 EAC4 PO (12:18)
[2016-10-11] MEDS ORDERED: GLUCOPHAGE850 MG PO (12:19)
[2016-10-11] MEDS ORDERED: COREG12.5 MG PO (12:19)
[2016-10-11] MEDS ORDERED: PATANOL 0.1% DR0.1 % OPHTH (12:20)
[2016-10-11] MEDS ORDERED: LIORESAL10 MG PO (12:23)
[2016-10-11] MEDS ORDERED: HUMALOG100 UNIT/1 SUB-Q ×2 (12:24→12:27)
[2016-10-11] MEDS ORDERED: MECLIZINE HCL25 MG PO (12:27)
[2016-10-11] MEDS ORDERED: CARAFATE1 GM PO (12:28)
[2016-10-11] MEDS ORDERED: NYSTATIN1 EAC1 TOP ×2 (12:28→12:34)
[2016-10-11] MEDS ORDERED: TYLENOL325 MG PO (12:29)
[2016-10-11] MEDS ORDERED: MAG-AL PLUS XS30 ML PO (12:29)
[2016-10-11] MEDS ORDERED: VOLTAREN 1% GE100 GM TOP (12:30)
[2016-10-11] MEDS ORDERED: NORCO 10-325 T1 EACH PO (12:31)
[2016-10-11] MEDS ORDERED: ADVIL200 MG PO (12:32)
[2016-10-11] MEDS ORDERED: LOMOTIL 2.5-0.1 EACH PO (12:32)
[2016-10-11] MEDS ORDERED: MIRALAX17 GM PO (12:33)
[2016-10-11] MEDS ORDERED: MUCINEX600 MG PO (12:33)
[2016-10-11 13:28] LABS: BICARBONATE 34.6 mmol/L (18.0-23.0)
[2016-10-11 13:40] LABS: PCO2 77 mmHg (35-45); PO2 120 mmHg (80-90)
--- NOTE | 2016-10-11 15:09 | NUR ---
PATIENT IS 76 YO FEMALE ADMITTED THIS AFTERNOON FROM [facility] AFTER A FALL DURING THE NIGHT W/FRACTURE OF RIGHT HIP. PATIENT HAS BEEN HAVING RESPIRATORY DISTRESS AT THE [facility]. SHE HAS NOT BEEN ABLE TO SLEEP IN BED BECAUSE OF THIS. SHE HAS BEEN SLEEPING IN A LIFT RECLINER CHAIR. SHE IS UNABLE TO WALK TO THE DINING ROOM FOR A FEW MONTHS WELL AND HAS BEEN USING A W/C TO GET TO AND FROM. SHE HAS BEEN NEEDING MORE HELP IN HER ROOM ALSO. WAS ASSISTED UP TO BR, AND HER "LEGS GAVE OUT". INFORMATION IS GIVEN BY HER NIECE AND OTHER INFORMATION FROM MEDICAL RECORDS SENT W/PATIENT PATIENT IS UNABLE TO GIVE ANSWERS DUE TO CPAP AT THIS TIME. DIFFICULT TO TALK, DIFFICULT TO UNDERSTAND. PATIENT IS LETHARGIC WELL. EDUCATION IS GIVEN DOCUMENTED TO NIECE PATIENT UNABLE TO UNDERSTAND AT THIS TIME. LEFT SUBCLAVIAN IV IS INFUSING WITHOUT DIFFICULTY. REPORT IS GIVEN TO MAX REY.
[2016-10-11 18:19] LABS: ANION GAP 10.5 (10.0-19.0); CALCIUM 8.9 mg/dL (8.5-10.5); CREATININE 1.6 mg/dL (0.5-1.1); POTASSIUM 5.5 mMol/L (3.7-5.1)
--- NOTE | 2016-10-11 19:20 | NUR ---
Significant Event: BIPAP WEANED FROM 60% TO 40% FIO2 AND CONTINUES ALL DAY. CRITICAL VALUE OF [address] JOSE. NARCAN X1 WHEN ARRIVED TO THE FLOOR WELL CA GLUCONATE AND INSULIN/DEXROSE. BS 300S-REPORTED TO DR. GIANG. CONSULTS ALL NOTIFIED-CARDIOLOGY,PULM,ORTHO,AND GI. CT SCANS DONE. KEPT NPO. DROWSY AND LETHARGIC WHEN ARRIVED TO THE FLOOR BUT IS ALERT AND TALKING AT THE END OF THE SHIFT. PROTONIX GTT STARTED. SALAS WITH 1L UOP. NIECE AND SON UPDATED ON THE POC. PORT SITE AND MIDLINE ALSO STARTED TO RT)UPPER ARM. REPOSITIONED Q2H. TO TRANSFUSE PRBC'S TONITE- HAVE ANOTHER ACCESS TO TRANSFUSE. Follow up: CONTINUE PLAN OF CARE; TRANSFUSE PRBC'S; FURTHER W/U PER SPECIALTIES.
--- NOTE | 2016-10-12 07:50 | NUR ---
A&Ox3, SBP: 130-150s. HR: 90s. 95-97% ON BIPAP WITH FiO2 OF 40%. REPOSITIONED Q2HRS. PATIENT REFUSES BECAUSE SHE IS IN SO MUCH PAIN. PO TYLENOL GIVEN. 2 UNITS OF PRBC GIVEN WITH 1 MORE UNIT TO GIVE. DRAW LAWBS 1HR AFTER UNIT IS FINISHED TRANSFUSING. Q6 ACCUCHECKS WITH NO SSI NEEDED. SALAS PATENT. POA AT BEDSIDE. ABG'S TO BE DRAWN AND PLAN OF CARE TO BE DETERMINED FROM THERE.
[2016-10-12 08:11] LABS: BICARBONATE 35.6 mmol/L (18.0-23.0); PCO2 63 mmHg (35-45); PO2 98 mmHg (80-90)
--- NOTE | 2016-10-12 08:17 | NUR ---
PATIENT PRESENTED TO THE ER WITH A NECROTIC RIGHT GREAT TOE. PATIENT STATES, "I NOTICED IT YESTERDAY". HX OF HTN, DM TYPE 2, COPD, HOME O2, SMOKER, DORSALGIA, NEUROPATHY, FREQUENT FALLS, CELLULITIS, DEPRESSION, AND FREQUENT UTI'S. SURGICAL HX OF AMPUTATED TOES, SURGERIES ON RT ELBOW, STENTS PLACED IN LEGS, COLON RESECTION. PLAN IS TO CONSULT ID AND ORTHO IN AM, IV ABX, NON WT BEARING TO RIGHT FOOT. THE PATIENT IS A&Ox3, HTN: SBP 160s. 4L NC TO KEEP SATS> 88%. UP TO BSC WITH 1PA, GB/WALKER.
[2016-10-12 12:50] LABS: BASOPHIL % 0.2 %; EOSINOPHIL # 0.1 K/uL (0.0-0.5); EOSINOPHIL % 0.6 %; HEMOGLOBIN 10.2 g/dL (10.0-15.0); IMMATURE GRANULOCYTE # 0.1 K/uL (0.0-0.3); IMMATURE GRANULOCYTE % 0.6 %; LYMPHOCYTE % 7.1 %; MCHC 29.7 gm/dL (32.0-36.5); MCV 85.1 fl (83.0-98.0); MONOCYTE # 1.3 K/uL (0.0-1.0); MONOCYTE % 9.3 %; MPV 10.5 fl (9.4-12.4); NEUTROPHIL # (ANC) 11.5 K/uL (1.8-7.8); NEUTROPHIL % 82.2 %; NRBC % 0.2 /100WBC (0-0.00); PLATELET COUNT 255 K/uL (150-450); RDW-CV 16.8 % (11.9-14.6)
[2016-10-12 12:51] LABS: HEMATOCRIT 34.3 % (33.0-46.0); MCH 25.3 pg (27.0-34.0); RBC 4.03 M/uL (3.50-5.50)
[2016-10-12 12:56] LABS: INR - (THERAPEUTIC) 1.02 (0.92-1.07); PROTIME 10.7 SECONDS (9.8-11.4); PTT 25 SECONDS (25-32)
[2016-10-12 13:06] LABS: ALBUMIN 2.6 gm/dL (3.5-5.0); ANION GAP 9.7 (10.0-19.0); CALCIUM 8.7 mg/dL (8.5-10.5); CREATININE 1.2 mg/dL (0.5-1.1); MAGNESIUM 2.4 mg/dL (1.8-2.6); POTASSIUM 4.7 mMol/L (3.7-5.1); TOTAL PROTEIN 6.5 g/dL (6.0-8.4)
[2016-10-12 13:08] LABS: TOTAL BILIRUBIN 0.7 mg/dL (0.0-1.5)
--- NOTE | 2016-10-12 16:23 | NUR ---
Significant Event: PAtient alert and oriented. Occasionally forgetful. Skeletal traction placed to rt leg by Dr. Wright this am. 30 lbs traction with 10 lbs counter traction. Mid line IV to rt upper arm. Port to left check. Protonix infusing. Lasix mg IVP given 1253 with good UOP per yao. CSM WNL to rt leg. O2 at 4L per nc. IS encourage and averages 500. Redness to coccyx , under lt breast and abdominal fold. HGB 10.2 after blood transfusion. NPO after midnight for possible endo in AM. Dilaudid 0.2 mg at 1245. Tylenol 325 mg at 1418. Moderate soft BM. Stool sent for hematest. Follow up:
[2016-10-12 18:50] LABS: HEMATOCRIT 33.1 % (33.0-46.0)
[2016-10-13 00:44] LABS: HEMATOCRIT 33.6 % (33.0-46.0); HEMOGLOBIN 9.9 g/dL (10.0-15.0)
--- NOTE | 2016-10-13 04:45 | NUR ---
Significant Event: Pt A&Ox3. Vital signs stable, 4L nc, BiPAP @ HS. Currently in skeletal traction. Pin care to be done BID--betadine, split gauze. Elevate all extremities. Missing toes on Lt foot, suture to toe. Accuchecks q6, mild scale. Held levemir last night d/t pt's BS 85. No c/o N/T to RLE. Lots of pain with movement. Prior to moving, please give IV dilaudid. Has Lt chest port, NS @ 10, protonix gtt. H&H @ mid, 10.2. Midline to MAXINE MERAZ. To have EGD in AM. Follow up: Continue plan of care.
[2016-10-13 05:46] LABS: ANION GAP 8.2 (10.0-19.0); CALCIUM 8.9 mg/dL (8.5-10.5); CREATININE 1.1 mg/dL (0.5-1.1); POTASSIUM 4.2 mMol/L (3.7-5.1)
[2016-10-13 05:55] LABS: BASOPHIL % 0.3 %; EOSINOPHIL # 0.2 K/uL (0.0-0.5); EOSINOPHIL % 1.3 %; HEMATOCRIT 34.2 % (33.0-46.0); HEMOGLOBIN 10.2 g/dL (10.0-15.0); IMMATURE GRANULOCYTE # 0.1 K/uL (0.0-0.3); IMMATURE GRANULOCYTE % 0.6 %; LYMPHOCYTE # 1.3 K/uL (0.8-4.0); LYMPHOCYTE % 10.5 %; MCH 25.3 pg (27.0-34.0); MCHC 29.8 gm/dL (32.0-36.5); MCV 84.9 fl (83.0-98.0); MONOCYTE # 1.2 K/uL (0.0-1.0); MONOCYTE % 9.4 %; MPV 10.7 fl (9.4-12.4); NEUTROPHIL # (ANC) 9.8 K/uL (1.8-7.8); NEUTROPHIL % 77.9 %; NRBC % 0.2 /100WBC (0-0.00); PLATELET COUNT 252 K/uL (150-450); RBC 4.03 M/uL (3.50-5.50); RDW-CV 17.2 % (11.9-14.6); WBC 12.6 K/uL (4.0-11.0)
--- NOTE | 2016-10-13 16:14 | NUR ---
Significant Event: DROWSY BUT AROUSES EASILY. C/O PAIN TO LEFT LEG, PRN DILAUDID X2 GIVEN. EGD DONE, NO ABNORMALITIES FOUND. TAKEN TO OR TO ORIF RIGHT FEMUR @ 1525. LEFT CHEST PORT SL'D. RIGHT UPPER FA MIDLINE SL'D. BM X1. SALAS PATENT WITH GOOD UOP. O2 @ 4L NC. BIPAP AT NIGHT. Follow up: MONITOR CLOSELY POST-OP.
--- NOTE | 2016-10-14 04:41 | NUR ---
Significant Event: Post-op day #1 of ORIF of R femur. Pt had some hallucinations (thought there was a little girl running in her room) throughout the night. Pt refused to wear the BiPAP, ended up putting her on 3L nc. Pt still has pain, but slept well throughout the night. Just gave x1 dose of dilaudid and x2 doses of tylenol. The Rt lateral dressing had drainage on it, ended up just reinforcing it. Pt had large bowel movement this AM on bedpan. Have been putting ice to larger incision to help with bleeding and pain. Troponin is still elevated, but trending down (0.170). Pt remained afebrile throughout the night. Gomez still present and patent. Positioning, pt wants to be off that hip and on pillow. NS to Lt chest port, x1 additional dose of ancef left. Follow up: Continue plan of care. Change lift shift to green sheet. Son will call later today to follow up with labs.
[2016-10-14 05:44] LABS: CALCIUM 7.9 mg/dL (8.5-10.5)
[2016-10-14 05:52] LABS: BASOPHIL % 0.3 %; EOSINOPHIL # 0.1 K/uL (0.0-0.5); EOSINOPHIL % 0.9 %; HEMATOCRIT 31.8 % (33.0-46.0); HEMOGLOBIN 9.4 g/dL (10.0-15.0); IMMATURE GRANULOCYTE # 0.1 K/uL (0.0-0.3); IMMATURE GRANULOCYTE % 0.9 %; LYMPHOCYTE # 1.4 K/uL (0.8-4.0); LYMPHOCYTE % 11.9 %; MCH 25.1 pg (27.0-34.0); MCHC 29.6 gm/dL (32.0-36.5); MONOCYTE % 8.9 %; MPV 10.2 fl (9.4-12.4); NEUTROPHIL # (ANC) 9.1 K/uL (1.8-7.8); NEUTROPHIL % 77.1 %; NRBC % 0 /100WBC (0-0.00); PLATELET COUNT 226 K/uL (150-450); RBC 3.74 M/uL (3.50-5.50); RDW-CV 17.4 % (11.9-14.6); WBC 11.8 K/uL (4.0-11.0)
[2016-10-14 11:16] LABS: BICARBONATE 35.8 mmol/L (18.0-23.0); PCO2 54 mmHg (35-45); PO2 61 mmHg (80-90)
--- NOTE | 2016-10-14 16:29 | NUR ---
Significant Event: DROWSY AT TIMES. BIPAP ON WHEN SLEEPING. ORIENTED X3 BUT FORGETFUL. RIGHT MIDLINE IV, SL'D, GOOD BLOOD RETURN, DRESSING CHANGED. LEFT CHEST PORT, SL'D, GOOD BLOOD RETURN, NEEDLE AND DRESSING CHANGED. O2 @ 4L NC WHEN AWAKE. RIGHT LEG INCISIONS COVERED WITH DRESSING. INCONTINENT OF STOOL X6, LOOSE. FLEXISEAL PLACED. PERIAREA VERY RED AND EXCORIATED, ALOE VESTA APPLIED. NYSTATIN POWDER APPLIED TO ABDOMINAL FOLDS. SALAS CATHETER PATENT, GOOD UOP. LASIX 40 MG IV X1 GIVEN. Follow up: CONTINUE TO MONITOR CLOSELY.
--- NOTE | 2016-10-15 04:12 | NUR ---
Significant Event: POD #2 of ORIF of Rt femur. Pt A&Ox3, no signs of hallucinations overnight. Off and on BiPAP all night. Vital signs remain stable. No output out of rectal tube. Pt c/o Lt ankle still hurting a lot even with elevtion, wrapped, and ice. Possible need for Xray? Tylenol last given 023. Haven't been doing a lot of moving, but is helping out more with turning and such. Almost no strength in Lt leg to help supervisor picking crew and such. PO intake remains good. BS last night was 348. Kathy area still remains very excoriated. Most pain is associated with Lt ankle than femur fracture. Follow up: Continue plan of care
[2016-10-15 05:20] LABS: BASOPHIL % 0.2 %; EOSINOPHIL # 0.2 K/uL (0.0-0.5); EOSINOPHIL % 1.7 %; HEMATOCRIT 32.1 % (33.0-46.0); HEMOGLOBIN 9.4 g/dL (10.0-15.0); IMMATURE GRANULOCYTE # 0.1 K/uL (0.0-0.3); IMMATURE GRANULOCYTE % 0.6 %; LYMPHOCYTE # 1.4 K/uL (0.8-4.0); LYMPHOCYTE % 9.9 %; MCH 24.8 pg (27.0-34.0); MCHC 29.3 gm/dL (32.0-36.5); MCV 84.7 fl (83.0-98.0); MONOCYTE # 1.1 K/uL (0.0-1.0); MONOCYTE % 8.1 %; MPV 10.1 fl (9.4-12.4); NEUTROPHIL # (ANC) 10.9 K/uL (1.8-7.8); NEUTROPHIL % 79.5 %; NRBC % 0 /100WBC (0-0.00); PLATELET COUNT 226 K/uL (150-450); RBC 3.79 M/uL (3.50-5.50); WBC 13.7 K/uL (4.0-11.0)
[2016-10-15 05:25] LABS: ALBUMIN 2.1 gm/dL (3.5-5.0); ALK PHOS 57 IU/L (33-138); ALT 11 IU/L (12-78); ANION GAP 6.6 (10.0-19.0); AST 15 IU/L (10-40); BLOOD UREA NITROGEN 25 mg/dL (6-24); CALCIUM 8.2 mg/dL (8.5-10.5); CHLORIDE 101 mMol/L (96-110); CREATININE 0.9 mg/dL (0.5-1.1); ESTIMATED GFR (MDRD EQUATION) > 60; POTASSIUM 3.6 mMol/L (3.7-5.1); SODIUM 139 mMol/L (135-145); TOTAL BILIRUBIN 0.6 mg/dL (0.0-1.5); TOTAL PROTEIN 5.9 g/dL (6.0-8.4)
[2016-10-15 05:29] LABS: CO2 35 mMol/L (22-32)
--- NOTE | 2016-10-15 15:13 | NUR ---
Introduced self and CM role to Vanda. She tells me that she is a resident at the [facility] and it is her goal to return there when she is medically cleared to do so. I asked if she would be interested in going to a SWB for a short stay prior to returning to the nursing facility but she tells me she wants to go to the SNF if she had a choice. She tells me that her primary care doctor is at [facility] in [place], [place] and she has been hospitalized there before. I let her know that I would look into that and then let her know what I found out. Vanda denies any other questions, needs or concerns at this time. Will continue to follow and assist.
--- NOTE | 2016-10-15 17:01 | NUR ---
PATIENT ORIENTED TO PLACE AND TIME. PEDAL PULSES FOUND WITH DOPPLER AND MARKED. PATIENT RECIEVING ALBUMIN 25% RUNNING ON POWER PORT ON CHEST. WOC NURSE IN TO SEE OPEN EXCORIATED AND BLEEDING AREAS UNDER ABDONMINAL FOLD AND LEFT BREAST. XRAY OF THE RIGHT FOOT IN THE AM. TYLENOL GIVEN FOR PAIN. LAST BLOOD SUGAR WAS 281. PATIENT ON BEDREST.
--- NOTE | 2016-10-16 05:32 | NUR ---
Significant Event: Patient is A/O x3. Forgetful at times. VSS on 4L of O2 at night. SBP's in 120's-130's. No ouput out of rectal tube. Gomez intact. Boot applied to L) ankle. Tylenol last given at 1900. Accuchecks ACHS. Open area to L) skin fold, R) fold is open but not as severe. R) hip mepelex and melvin C/D/I. Bandaids to melvin above that dressing. R) vo dressed with gauze and tape is C/D/I. Midline to R) upper arm. L) chest port. Follow up: Continue with plan of care.
[2016-10-16 06:00] LABS: ALBUMIN 2.3 gm/dL (3.5-5.0); ANION GAP 8.4 (10.0-19.0); BLOOD UREA NITROGEN 24 mg/dL (6-24); CALCIUM 8.2 mg/dL (8.5-10.5); CHLORIDE 102 mMol/L (96-110); CREATININE 0.9 mg/dL (0.5-1.1); ESTIMATED GFR (MDRD EQUATION) > 60; PHOSPHORUS 2.4 mg/dL (2.5-4.9); POTASSIUM 3.4 mMol/L (3.7-5.1); SODIUM 142 mMol/L (135-145)
[2016-10-16 06:04] LABS: CO2 35 mMol/L (22-32)
[2016-10-16 06:18] LABS: BASOPHIL % 0.3 %; EOSINOPHIL # 0.3 K/uL (0.0-0.5); EOSINOPHIL % 2.5 %; HEMATOCRIT 29.4 % (33.0-46.0); HEMOGLOBIN 8.5 g/dL (10.0-15.0); IMMATURE GRANULOCYTE # 0.1 K/uL (0.0-0.3); IMMATURE GRANULOCYTE % 0.5 %; LYMPHOCYTE # 1.2 K/uL (0.8-4.0); MCH 25.2 pg (27.0-34.0); MCHC 28.9 gm/dL (32.0-36.5); MCV 87.2 fl (83.0-98.0); MONOCYTE # 0.8 K/uL (0.0-1.0); MONOCYTE % 6.5 %; MPV 10.4 fl (9.4-12.4); NEUTROPHIL # (ANC) 10.5 K/uL (1.8-7.8); NEUTROPHIL % 81.2 %; NRBC % 0 /100WBC (0-0.00); PLATELET COUNT 214 K/uL (150-450); RBC 3.37 M/uL (3.50-5.50); RDW-CV 18.3 % (11.9-14.6); WBC 12.9 K/uL (4.0-11.0)
--- NOTE | 2016-10-16 10:54 | NUR ---
PT SCREENED D/T LOS. EST NEEDS: [id number] KCALS, 96-103 GM PROTEIN, 1 ML/KCAL FLUIDS. PT EATING WELL. NO NUTRITION-RELATED DX IDENTIFIED. WILL ASSIST NEEDED.
--- NOTE | 2016-10-16 16:11 | NUR ---
1610 Call to SANNA Petty at [facility] in [place], [place] to give her an udpate on Vanda and see if/when they could take her back. No answer, so was left with her asking that she call me back as soon as she is able to do so. [facility] [phone]. Will continue to follow and assist.
--- NOTE | 2016-10-16 17:09 | NUR ---
Significant Event: A/O x3, forgetful at times; cooperative with cares. VSS, SBPs 120-150s, HRs 90s, oxygen at 3 liters. Tylenol given x2, last at 1317, for c/o bilateral leg pain; minimal relief noted. Gomez patent with 1600 ml of yellow urine out; recieved oral diamox et IV lasix this shift. Rectal tube patent; no output except what is in the tube. Reposition every 2 hours; PT/OT working with patient, dangled at bedside. Follow up:bedside spirometry to be checked
--- NOTE | 2016-10-17 04:17 | NUR ---
Significant Event: A/O x3. Forgetful at times. VSS. SBP's in 130-140's. HR in 90's. O2 at 2L. Tylenol given last at 2314. Ultram given x2, last at 0320. Gomez patent with 1250 out. Rectal tube patent, no significant output. R) hip mepelex and melvin C/D/I. R) vo dressing C/D/I. Accuchecks ACHS. Midline to R) upper arm flushes well. L) chest port. Follow up: Will go back to [facility] on dismissal.
[2016-10-17 07:13] LABS: BASOPHIL % 0.3 %; EOSINOPHIL # 0.4 K/uL (0.0-0.5); EOSINOPHIL % 3.3 %; HEMOGLOBIN 8.7 g/dL (10.0-15.0); IMMATURE GRANULOCYTE # 0.1 K/uL (0.0-0.3); IMMATURE GRANULOCYTE % 0.8 %; LYMPHOCYTE # 1.6 K/uL (0.8-4.0); LYMPHOCYTE % 12.1 %; MCH 24.9 pg (27.0-34.0); MCHC 28.1 gm/dL (32.0-36.5); MCV 88.8 fl (83.0-98.0); MONOCYTE # 0.9 K/uL (0.0-1.0); MONOCYTE % 6.6 %; MPV 9.8 fl (9.4-12.4); NEUTROPHIL # (ANC) 10.2 K/uL (1.8-7.8); NEUTROPHIL % 76.9 %; NRBC % 0 /100WBC (0-0.00); PLATELET COUNT 230 K/uL (150-450); RBC 3.49 M/uL (3.50-5.50); RDW-CV 18.3 % (11.9-14.6); WBC 13.2 K/uL (4.0-11.0)
[2016-10-17 07:30] LABS: CALCIUM 8.5 mg/dL (8.5-10.5)
--- NOTE | 2016-10-17 09:41 | NUR ---
0875 Call from Malinda this morning re:Vanda coming back to them. I was in my morning meeting so I asked that she call back a bit later. She tells me that she has a meeting until 1200 today but will call me back when she is out of that. I let her know that this was fine. 0910 Call from stating that if [facility] in [place] could accept her back, she would most likely be ready to go tomorrow. I let him know I would be talking with Malinda later today and I would see what I could get worked out for her to dismiss back to them tomorrow. He was fine with this. CM to continue to follow and assist.
--- NOTE | 2016-10-17 17:13 | NUR ---
Significant Event: A/O x3, forgetful at times. VSS, SBPs 120-130s, HRs 80-90s, oxygen at 2 liters. Tylenol given x2, last at 1327 et tramadol at 0923 for c/o generalized achiness; mild relief noted. Patient stated that the only way to completely get rid of her pain would be to put her completely under. Gomez patent with 1000 ml of yellow urine out this shift. Flexiseal dc'd this shift; no significant output. PT/OT working with patient; up to chair with mechanical lift. Reposition every 2 hours while in bed. Follow up:d/c to [facility] tomorrow; ambulance scheduled for 1100; orders not done
--- NOTE | 2016-10-18 04:36 | NUR ---
Significant Event: Patient is alert and oriented x 3. Forgetful. VSS on bipap. On 2L of O2 during the day. HRs in the 70s-80s. SBPs in the 1 teens-140s. Afebrile. Full lift. Reposition q2 hours. Mepilex dressing to right hip is intact. Band-aids to right leg intact. Gomez intact. 575 mls out this shift. Left chest port, saline locked. Right upper arm midline IV, saline locked. Boot to left lower extremity. ACHS accuchecks. Tylenol given for pain last at 0008. Tramadol given at 0132. Patient is cooperative with cares. Follow up: To go to [facility] today at 1100 by ambulance.
[2016-10-18 05:12] LABS: BASOPHIL # 0.1 K/uL (0.0-0.2); BASOPHIL % 0.4 %; EOSINOPHIL # 0.5 K/uL (0.0-0.5); EOSINOPHIL % 4.3 %; HEMATOCRIT 30.9 % (33.0-46.0); HEMOGLOBIN 8.6 g/dL (10.0-15.0); IMMATURE GRANULOCYTE # 0.1 K/uL (0.0-0.3); IMMATURE GRANULOCYTE % 1.2 %; LYMPHOCYTE # 1.7 K/uL (0.8-4.0); LYMPHOCYTE % 15.2 %; MCHC 27.8 gm/dL (32.0-36.5); MCV 89.8 fl (83.0-98.0); MONOCYTE # 0.8 K/uL (0.0-1.0); MONOCYTE % 7.1 %; MPV 10.1 fl (9.4-12.4); NEUTROPHIL # (ANC) 8.1 K/uL (1.8-7.8); NEUTROPHIL % 71.8 %; NRBC % 0 /100WBC (0-0.00); PLATELET COUNT 236 K/uL (150-450); RBC 3.44 M/uL (3.50-5.50); RDW-CV 18.1 % (11.9-14.6); WBC 11.4 K/uL (4.0-11.0)
--- NOTE | 2016-10-18 12:40 | NUR ---
Talked with MAX Mock who confirms that Dr. Phelps is going to come around and do orders so we can get Vanda to [facility] today via ambulace at 1100. Confirmed with [facility], [place], that we were a go and they could have a crew up here at 1100 to pick her up. RN to RN number on the chart to have her call in report before Vanda leaves. I left a VM with Malinda, letting her know that we were going to have her leave here shortly after 1100, also told her I faxed over orders to her so she could be expecting those. Left my number and PCU floor number on the VM incase she would have any questions. Orders were faxed prior to her dismissal. Vanda still in agreement with transfer to SNF today. No other questions, needs or concerns. Plan transfer today to SNF at 1100.
--- NOTE | 2016-10-18 14:44 | NUR ---
Significant Event: A/O x3, cooperative with cares. VSS, SBPs 120-130s, HRs 80s, oxygen at 2 liters. Tylenol given at 0720 et tramadol at 1107 for c/o generalized achiness; minimal relief noted. Gomez patent with 350 ml of urine out this shift. Port deaccessed. Reposition every 2 hours. Moved to stretcher per mechanical lift. Transported back to [facility] per ambulance. Follow up:
== END 2016-10-18 11:30 | disposition swing bed (61) | DRG 480 ==
LOC: GMED 07:25 → GPCU 09:28
PROVIDERS: Family Medicine; Internal Medicine Interventional Cardiology; Nurse Practitioner; ADMIT Internal Medicine
PROC: 2W6NX0Z Traction of Right Upper Leg using Traction Apparatus (ICD-10-PCS; principal; 2016-10-11)
PROC: 3E0F7GC Introduction of Other Therapeutic Substance into Respiratory Tract, Via Natural or Artificial Opening (ICD-10-PCS; principal; 2016-10-11)
PROC: 30233N1 Transfusion of Nonautologous Red Blood Cells into Peripheral Vein, Percutaneous Approach (ICD-10-PCS; principal; 2016-10-11)
PROC: 0DJ08ZZ Inspection of Upper Intestinal Tract, Via Natural or Artificial Opening Endoscopic (ICD-10-PCS; 2016-10-13)
PROC: 0QS606Z Reposition Right Upper Femur with Intramedullary Internal Fixation Device, Open Approach (ICD-10-PCS; 2016-10-13)
DX: S72.90XA Unspecified fracture of unspecified femur, initial encounter for closed fracture (principal); I21.4 Non-ST elevation (NSTEMI) myocardial infarction; J96.21 Acute and chronic respiratory failure with hypoxia; I50.31 Acute diastolic (congestive) heart failure; N17.9 Acute kidney failure, unspecified; J81.1 Chronic pulmonary edema; E44.0 Moderate protein-calorie malnutrition; I13.0 Hypertensive heart and chronic kidney disease with heart failure and stage 1 through stage 4 chronic kidney disease, or unspecified chronic kidney disease; D62 Acute posthemorrhagic anemia; E87.2 Acidosis; E87.3 Alkalosis; K92.2 Gastrointestinal hemorrhage, unspecified; Z68.42 Body mass index [BMI] 45.0-49.9, adult; E11.22 Type 2 diabetes mellitus with diabetic chronic kidney disease; N18.9 Chronic kidney disease, unspecified; D72.829 Elevated white blood cell count, unspecified; E87.5 Hyperkalemia; G47.33 Obstructive sleep apnea (adult) (pediatric); I27.2 Other secondary pulmonary hypertension; J44.9 Chronic obstructive pulmonary disease, unspecified; I27.81 Cor pulmonale (chronic); E11.40 Type 2 diabetes mellitus with diabetic neuropathy, unspecified; K58.9 Irritable bowel syndrome, unspecified; E66.01 Morbid (severe) obesity due to excess calories; Z66 Do not resuscitate
CPT/HCPCS: C1713; C1751; C9113; J0360; J0610; J0690; J1120; J1170; J1642; J1650; J1940; J2310; J7030; J7050; J7060; P9016; P9047; Q9957